=== PATIENT | male | born 1980 | race Caucasian/White ===

== ENCOUNTER 2020-03-06 09:06 | Outpatient (CLI) | payer BC, SELFPAY ==
[2020-03-06 09:38] LABS: Basophils Absolute Auto 0.1 K/mm3 (0.0-0.1); Basophils Percent Auto 0.9 % (0.2-1.2); Eosinophils Absolute Auto 0.2 K/mm3 (0-0.3); Eosinophils Percent Auto 2.1 % (0-4.4); Hematocrit 42.6 % (42.0-52.0); Hemoglobin 14.4 g/dL (14.0-18.0); Immature Granulocyte Absolute 0.03 K/mm3 (0.00-0.031); Immature Granulocyte Percent A 0.4 % (0-0.5); Lymphocytes Absolute Auto 2.91 K/mm3 (0.9-3.2); Lymphocytes Percent Auto 37.6 % (18.3-44.2); Mean Corpuscular HGB Conc 33.8 g/dl (32-36); Mean Corpuscular Volume 91.6 fl (80-100); Mean Platelet Volume 8.7 fl (7.4-10.4); Monocytes Absolute Auto 0.6 K/mm3 (0.1-0.6); Monocytes Percent Auto 7.1 % (2.6-8.5); Neutrophils Percent Auto 51.9 % (45.5-73.1); Platelet Count Result 320 k/mm3 (150-375); Red Blood Count 4.65 M/mm3 (4.6-6.20); Red Cell Distribution Width 12.4 % (11.5-14.5); White Blood Count 7.7 K/mm3 (4.5-10.0)
[2020-03-06 09:51] LABS: Alanine Aminotransferase 71 U/L (4-50); Albumin Level 4.1 g/dL (3.5-5.1); Alkaline Phosphatase 146 U/L (38-126); Aspartate Amino Transferase 42 U/L (17-59); Bilirubin,Total 0.4 mg/dL (0.2-1.3); Blood Urea Nitrogen 12 mg/dL (9-20); Carbon Dioxide 26 mmol/L (22-30); Chloride 101 mmol/L (98-107); Cholesterol 220 mg/dL (0-200); Estimated Glomerular Filt Rate > 60; Glucose 142 mg/dL (75-110); HDL Direct 61 mg/dL; Sodium 135 mmol/L (137-145); Triglycerides 102 mg/dL (<150)
[2020-03-06 10:03] LABS: LDL Cholesterol Direct 141 mg/dL
[2020-03-06 10:56] LABS: Hemoglobin A1C 8.4 % (<5.7)
[2020-03-06 15:21] LABS: Microalbumin Urine Random 101.5 mg/L (0-16.7)
[2020-03-06 15:24] LABS: Creatinine Urine 96.9 mg/dL; MALB Creatinine Ratio 104.7 mg/g (0-30)
[2020-03-11 15:59] LABS: Testosterone Total 270 ng/dL (250-1100)
== END 2020-03-06 09:07 | disposition home or self-care (01) ==
PROVIDERS: PCP Family Medicine; Visit Provider Nurse Practitioner
DX: R53.83 Other fatigue (principal); E11.9 Type 2 diabetes mellitus without complications; E03.9 Hypothyroidism, unspecified; E29.1 Testicular hypofunction; Z13.220 Encounter for screening for lipoid disorders; E55.9 Vitamin D deficiency, unspecified
CPT/HCPCS: 36415; 80053; 80061; 82043; 82306; 83036; 84402; 84403; 84443; 85025

== ENCOUNTER 2020-12-30 18:06 | Emergency (ER) | payer BC, SELFPAY ==
[2020-12-30 18:14] VITALS: BP 151/82; PULSE 93; RESP 16; TEMP 36.7; O2SAT 100
--- NOTE | 2020-12-30 19:07 | ED.GENADULT ---
HPI - General Adult General Chief complaint: Psychiatric Symptoms <Mirlande Lugo MD - Last Filed: 12/31/20 12:19> Stated complaint: mental health issues <Mirlande Lugo MD - Last Filed: 12/31/20 12:19> Time Seen by Provider: 12/30/20 18:43 <Mirlande Lugo MD - Last Filed: 12/31/20 12:19> Source: patient <Mirlande Lugo MD - Last Filed: 12/31/20 12:19> History of Present Illness HPI narrative: Patient is 40 y/o male complaining of a severe panic attack. He states that he was crying on floor earlier today about 1-2 hours ago. He states that he was incoherent. He states he is more stressed because his daughter had a recent suicide attempt. He denies any SI, HI or hallucinations. <Mirlande Lugo MD - Last Filed: 12/31/20 12:19> Related Data Allergies/adverse reactions: Allergies Allergy/AdvReac Type Severity Reaction Status Date / Time amoxicillin Allergy Unknown unknown Verified 12/30/20 18:21 meperidine Allergy Unknown unknown Verified 12/30/20 18:21 povidone Allergy Unknown unknown Verified 12/30/20 18:21 povidone-iodine Allergy Unknown Rash Verified 12/30/20 18:21 soap Allergy Unknown Unknown Verified 12/30/20 18:21 <Mirlande Lugo MD - Last Filed: 12/31/20 12:19> Review of Systems Constitutional: Constitutional: Denies chills, Denies fever(s), Denies headache(s) and Denies weakness <Mirlande Lugo MD - Last Filed: 12/31/20 12:19> Eyes: Eyes: Denies blurry vision <Mirlande Lugo MD - Last Filed: 12/31/20 12:19> ENT: Denies headache(s) and Denies neck pain <Mirlande Lugo MD - Last Filed: 12/31/20 12:19> Cardiovascular: Cardiovascular: Denies chest pain and Denies dyspnea <Mirlande Lugo MD - Last Filed: 12/31/20 12:19> Respiratory: Respiratory: Denies cough and Denies dyspnea <Mirlande Lugo MD - Last Filed: 12/31/20 12:19> Gastrointestinal: Gastrointestinal: Denies abdominal pain, Denies diarrhea, Denies nausea and Denies vomiting <Mirlande Lugo MD - Last Filed: 12/31/20 12:19> Genitourinary: Genitourinary: Denies hematuria and Denies dysuria <Mirlande Lugo MD - Last Filed: 12/31/20 12:19> Musculoskeletal: Musculoskeletal: Denies back pain and Denies neck pain <Mirlande Lugo MD - Last Filed: 12/31/20 12:19> Neurologic: Denies headache(s) and Denies weakness <Mirlande Lugo MD - Last Filed: 12/31/20 12:19> Psychiatric: Psychiatric: Reports as per HPI and Reports panic attacks <Mirlande Lugo MD - Last Filed: 12/31/20 12:19> PMF Past Medical History Medical History: Medical History Adult idiopathic generalized osteoporosis Diabetes History of leukemia Hypogonadism in male Osteoarthritis Psoriasis Thyroid goiter (~2010) Vitamin D deficiency <Mirlande Lugo MD - Last Filed: 12/31/20 12:19> Surgical History Surgical History: Surgical History History of bone marrow transplant History of cataract extraction <Mirlande Lugo MD - Last Filed: 12/31/20 12:19> Family History Family History: Family History Father Hypertension Family history of liver disease Family history of chronic obstructive pulmonary disease Family history of heart disease in male family member before age 55 Patient's father is Sibling Family history of alcoholism Family history of gastrointestinal disorder Mother Family history of type 2 diabetes mellitus Grandparent Family history of tuberculosis Hypertension Family history of arthritis <Mirlande Lugo MD - Last Filed: 12/31/20 12:19> Social History Social History: Social History Smoking status: Never smoker Alcohol intake: current <Mirlande Lugo MD - Last Filed: 12/31/20 12:19> Exam Const: General: no acute distress and well developed <Mirlande Lugo MD - [place]
--- NOTE | 2020-12-30 19:10 | PC.NURSE ---
assumed care of pt at this time. Report from Maco GROSS.
[2020-12-30 19:19] VITALS: BP 171/90; PULSE 88; RESP 18; O2SAT 97
[2020-12-30 19:38] LABS: Add Urine Microscopic? YES; Appearance Urine Clear (Clear); Bilirubin Urine Negative (Negative); Blood Urine Negative (Negative); Color Urine Straw (Yellow); Glucose Urine UA 3+ mg/dL (Negative); Ketones Urine Negative (Negative); Leukocyte Esterase Ur Negative LEU/UL (Negative); Mucus Urine Rare /lpf; Nitrate Urine Negative (Negative); Protein Urine 1+ mg/dL (Negative); RBC Urine 0-2 /hpf (0-2); Specific Grav Ur 1.015 (1.001-1.035); Urobilinogen Urine Negative mg/dL (<2.0); WBC Urine 0-3 /hpf
[2020-12-30 19:48] LABS: Basophils Percent Auto 0.5 % (0.2-1.2); Eosinophils Absolute Auto 0.1 K/mm3 (0-0.3); Eosinophils Percent Auto 1.4 % (0-4.4); Hematocrit 43.7 % (42.0-52.0); Hemoglobin 14.4 g/dL (14.0-18.0); Immature Granulocyte Absolute 0.02 K/mm3 (0.00-0.031); Immature Granulocyte Percent A 0.3 % (0-0.5); Lymphocytes Absolute Auto 2.51 K/mm3 (0.9-3.2); Lymphocytes Percent Auto 32.5 % (18.3-44.2); Mean Corpuscular Hemoglobin 30.4 pg (26-34); Mean Corpuscular Volume 92.4 fl (80-100); Mean Platelet Volume 9.1 fl (7.4-10.4); Monocytes Absolute Auto 0.6 K/mm3 (0.1-0.6); Monocytes Percent Auto 7.5 % (2.6-8.5); Neutrophils Absolute Auto 4.5 K/mm3 (1.3-6.7); Neutrophils Percent Auto 57.8 % (45.5-73.1); Platelet Count Result 265 k/mm3 (150-375); Red Blood Count 4.73 M/mm3 (4.6-6.20); Red Cell Distribution Width 12.8 % (11.5-14.5); White Blood Count 7.7 K/mm3 (4.5-10.0)
[2020-12-30 19:48] LABS: Barbiturate Screen Urine Negative (Negative); Benzodiazepines Screen Urine Negative (Negative)
[2020-12-30 19:49] LABS: Amphetamine Screen Urine Negative (Negative); Cannabinoid Screen Urine Negative (Negative); Cocaine Screen Urine Negative (Negative); Methadone Screen Urine Negative (Negative); Phencyclidine Screen Urine Negative (Negative)
[2020-12-30 19:56] LABS: Ethanol < 10 mg/dL (<10)
[2020-12-30 19:58] LABS: Alanine Aminotransferase 85 U/L (4-50); Albumin Level 4.1 g/dL (3.5-5.1); Alkaline Phosphatase 167 U/L (38-126); Anion Gap 4 mmol/L (8-16); Aspartate Amino Transferase 72 U/L (17-59); Bilirubin,Total 0.5 mg/dL (0.2-1.3); Blood Urea Nitrogen 13 mg/dL (9-20); Calcium 9.4 mg/dL (8.4-10.2); Carbon Dioxide 34 mmol/L (22-30); Chloride 100 mmol/L (98-107); Estimated CRCL calculation 218 ml/min; Estimated Glomerular Filt Rate > 60; Glucose 139 mg/dL (75-110); Potassium 4.2 mmol/L (3.4-5.0); Sodium 138 mmol/L (137-145)
[2020-12-30 20:09] LABS: Opiate Screen Urine Negative (Negative)
[2020-12-30 21:00] VITALS: BP 166/74; PULSE 87; RESP 20; O2SAT 99
[2020-12-30 22:52] VITALS: BP 162/88; PULSE 90; RESP 20; TEMP 36.6; O2SAT 97
== END 2020-12-30 22:52 | disposition home or self-care (01) ==
PROVIDERS: Family Medicine; Emergency Provider Emergency Medicine; PCP Family Medicine
DX: F32.9 Major depressive disorder, single episode, unspecified (principal); M81.8 Other osteoporosis without current pathological fracture; E11.9 Type 2 diabetes mellitus without complications; Z85.6 Personal history of leukemia; M19.90 Unspecified osteoarthritis, unspecified site; E55.9 Vitamin D deficiency, unspecified; Z98.49 Cataract extraction status, unspecified eye; Z94.81 Bone marrow transplant status
CPT/HCPCS: 36415; 80053; 80307; 81001; 84443; 85025; 99284

== ENCOUNTER 2021-02-01 08:35 | Outpatient (CLI) | payer BC, SELFPAY ==
[2021-02-01 08:55] LABS: Basophils Percent Auto 0.5 % (0.2-1.2); Eosinophils Absolute Auto 0.1 K/mm3 (0-0.3); Eosinophils Percent Auto 1.4 % (0-4.4); Hematocrit 42.9 % (42.0-52.0); Immature Granulocyte Absolute 0.03 K/mm3 (0.00-0.031); Immature Granulocyte Percent A 0.4 % (0-0.5); Lymphocytes Absolute Auto 1.57 K/mm3 (0.9-3.2); Lymphocytes Percent Auto 21.3 % (18.3-44.2); Mean Corpuscular HGB Conc 32.6 g/dl (32-36); Mean Corpuscular Hemoglobin 30.2 pg (26-34); Mean Corpuscular Volume 92.7 fl (80-100); Mean Platelet Volume 8.8 fl (7.4-10.4); Monocytes Absolute Auto 0.4 K/mm3 (0.1-0.6); Monocytes Percent Auto 5.7 % (2.6-8.5); Neutrophils Absolute Auto 5.2 K/mm3 (1.3-6.7); Neutrophils Percent Auto 70.7 % (45.5-73.1); Platelet Count Result 290 k/mm3 (150-375); Red Blood Count 4.63 M/mm3 (4.6-6.20); Red Cell Distribution Width 12.9 % (11.5-14.5); White Blood Count 7.4 K/mm3 (4.5-10.0)
[2021-02-01 09:08] LABS: Alanine Aminotransferase 74 U/L (4-50); Alkaline Phosphatase 122 U/L (38-126); Anion Gap 8 mmol/L (8-16); Aspartate Amino Transferase 52 U/L (17-59); Bilirubin,Total 0.6 mg/dL (0.2-1.3); Blood Urea Nitrogen 12 mg/dL (9-20); Calcium 9.2 mg/dL (8.4-10.2); Carbon Dioxide 31 mmol/L (22-30); Chloride 99 mmol/L (98-107); Cholesterol 224 mg/dL (0-200); Estimated Glomerular Filt Rate > 60; Glucose 108 mg/dL (75-110); HDL Direct 66 mg/dL; Potassium 3.6 mmol/L (3.4-5.0); Sodium 138 mmol/L (137-145); Triglycerides 102 mg/dL (<150)
[2021-02-01 09:12] LABS: Hemoglobin A1C 8.1 % (<5.7)
[2021-02-01 09:18] LABS: LDL Cholesterol Direct 119 mg/dL
[2021-02-01 09:56] LABS: Creatinine Urine 116.5 mg/dL
[2021-02-01 10:47] LABS: MALB Creatinine Ratio 218.4 mg/g (0-30); Microalbumin Urine Random 254.4 mg/L (0-16.7)
[2021-02-01 13:32] LABS: Vitamin D 25 Hydroxy < 12.8 ng/mL
[2021-02-05 15:07] LABS: Testosterone Total 22 ng/dL (250-1100)
== END 2021-02-01 08:36 | disposition home or self-care (01) ==
PROVIDERS: PCP Family Medicine; Visit Provider Nurse Practitioner
DX: E11.9 Type 2 diabetes mellitus without complications (principal); E55.9 Vitamin D deficiency, unspecified; E29.1 Testicular hypofunction
CPT/HCPCS: 36415; 80053; 80061; 82043; 82306; 83036; 84403; 85025

== ENCOUNTER 2022-04-07 08:01 | Outpatient (CLI) | payer BC, SELFPAY ==
--- NOTE | ~2022-04-07 | US_ITS ---
EXAMINATION: US abdomen complete DATE: 04/07/2022 08:38 INDICATION: Other specified abnormal findings of blood chemistry TECHNIQUE: Multiple grayscale and Doppler ultrasound images of the abdomen were obtained. COMPARISON: None FINDINGS: There is mildly increased echogenicity of the pancreas which is nonspecific. The liver demo nstrates increased echogenicity, heterogenous echotexture, and decreased through transmission. No reji face nodularity. Normal hepatopetal flow in the main portal vein. The gallbladder is normal with no a bnormal wall thickening, pericholecystic fluid or stones. The normal common bile duct measures 4 mm. There was no sonographic Landeros sign. The visualized portions of the aorta and inferior vena cava are normal. The right kidney measures 10.6 x 4.8 x 5.9 cm. The left kidney measures 10.6 x 4.1 x 6.2 cm. The kidn eys demonstrate normal parenchymal echogenicity. There is no hydronephrosis. The spleen measures 9.3 cm. Hyperechoic foci in the spleen consistent with old granulomatous disease. IMPRESSION: 1. Diffuse hepatic steatosis. Reviewed, dictated and finalized at location A.
== END 2022-04-07 08:02 | disposition home or self-care (01) ==
LOC: ANHIMG 08:01
PROVIDERS: PCP Family Medicine; Visit Provider Nurse Practitioner
DX: R14.0 Abdominal distension (gaseous) (principal); D89.811 Chronic graft-versus-host disease; R79.89 Other specified abnormal findings of blood chemistry; K76.0 Fatty (change of) liver, not elsewhere classified
CPT/HCPCS: 76700

== ENCOUNTER 2022-04-24 00:46 | Day surgery (SDC) | payer BC, SELFPAY ==
[2022-04-14 13:42] VITALS: BMI 16.6
[2022-04-24 06:55] VITALS: BP 140/80; PULSE 86; RESP 18; TEMP 36.3; O2SAT 98
--- NOTE | 2022-04-24 06:57 | SUR.PREOP ---
Pt. states that he did prep as prescribed but still having formed stools. Requesting to reschedule procedure.
== END 2022-04-24 07:07 | disposition home or self-care (01) ==
PROVIDERS: PCP Family Medicine; Visit Provider Internal Medicine Gastroenterology
PROC: 0DJD8ZZ Inspection of Lower Intestinal Tract, Via Natural or Artificial Opening Endoscopic (ICD-10-PCS; CPT 45378; principal; 2022-04-24 08:00)
DX: R19.7 Diarrhea, unspecified (principal); Z53.09 Procedure and treatment not carried out because of other contraindication
CPT/HCPCS: 99199; 99211; G0463

== ENCOUNTER 2022-05-23 17:00 | Emergency (ER) | payer BC, SELFPAY ==
--- NOTE | ~2022-05-23 | XR_ITS ---
EXAM: XR knee LT min 4V DATE: 05/23/2022 17:59 HISTORY: fall . COMPARISON: None available. FINDINGS: Severely decreased mineralization. Nondisplaced comminuted fracture of the distal left fem ur extending to the medial aspect of the intercondylar notch and the anterolateral cortex. No lytic o r blastic lesion. Joint spaces are maintained. No erosion or periosteal change. Large volume joint fl uid. IMPRESSION: Comminuted, nondisplaced fracture of the distal left femur. Large left knee joint effusio n. Reviewed, dictated and finalized at location K. IMPRESSION: Comminuted, nondisplaced fracture of the distal left femur. Large l eft knee joint effusion.
[2022-05-23 17:09] VITALS: BP 135/70; PULSE 100; RESP 18; TEMP 36.3; O2SAT 97
--- NOTE | 2022-05-23 18:11 | ED.LOWEXIN ---
HPI - Extremity Injury (Lower) General Chief Complaint: Extremity Injury, Lower Stated Complaint: Fell over the dog, left knee pain Time Seen by Provider: 05/23/22 17:19 History of Present Illness HPI Narrative: 42-year-old man presents to the emergency room for evaluation of left knee pain. Patient states that he tripped over his dog and heard a pop in his left knee. Patient is unable to ambulate due to the pain and swelling. Related Data Allergies Allergy/AdvReac Type Severity Reaction Status Date / Time amoxicillin Allergy Unknown unknown Verified 04/14/22 13:46 meperidine Allergy Unknown unknown Verified 04/14/22 13:46 povidone Allergy Unknown unknown Verified 04/14/22 13:46 povidone-iodine Allergy Unknown Rash Verified 04/14/22 13:46 soap Allergy Unknown Unknown Verified 04/14/22 13:46 Review of Systems Review of Systems: CONSTITUTIONAL: Denies fever, chills, or sweats. EYES: Denies visual changes, redness, or discharge. ENT: Denies rhinorrhea, congestion, sore throat, or otalgia. CARDIOVASCULAR: Denies chest pain, palpitations, or edema. RESPIRATORY: Denies cough or dyspnea. GASTROINTESTINAL: Denies abdominal pain, nausea, vomiting, or diarrhea. GENITOURINARY: Denies dysuria or hematuria. SKIN: Denies rash or itching. MUSCULOSKELETAL: Reports left knee pain NEUROLOGIC: Denies headache, numbness, dizziness, or weakness. PSYCHIATRIC: Denies anxiety or depression. 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 History of cataract extraction Family History Family History Father Hypertension Family history of liver disease Family history of chronic obstructive pulmonary disease Family history of heart disease in male family member before age 55 Patient's father is Sibling Family history of alcoholism Family history of gastrointestinal disorder Mother Family history of type 2 diabetes mellitus Grandparent Family history of tuberculosis Hypertension Family history of arthritis Social History Social History Smoking status: Never smoker Substance use: current Substance use type: marijuana Last use: 04/14/2022 Exam Narrative: GENERAL: Well-appearing, well-nourished, no physical limitations, and in no acute distress. HEAD: Normocephalic, atraumatic. EYES: Conjunctivae normal, PERRLA and EOMI. CHEST: Clear to auscultation. No respiratory distress. No wheezes rales or rhonchi. No tenderness. HEART: Regular rate and rhythm. No murmur heard. Normal peripheral pulses. EXTREMITIES: Left knee: Swelling and tenderness to the superior and lateral sides of the knee. No patellar tracking. No obvious bony abnormality or dislocation. Unable to fully extend due to pain, unable to assess for joint laxity due to pain. Unable to assess for meniscal injury due to limited range of motion and pain. Neurovascular is intact distally SKIN: Warm, dry, no rash. No noted wounds NEURO: No focal deficits. Alert and oriented x3. MAEW. CN's II-XI intact bilaterally, normal gait PSYCH: Cooperative. Normal mood and affect. Course Vital Signs Vital signs: Vital Signs Temperature 36.3 C L 05/23/22 17:09 Pulse Rate 100 05/23/22 17:09 Respiratory Rate 18 05/23/22 17:09 Blood Pressure 135/70 05/23/22 17:09 Pulse Oximetry 97 05/23/22 17:09 Oxygen Delivery Room Air
[2022-05-23] MEDS: IBUPROFEN 400 MG TABLET PO (18:27)
== END 2022-05-23 18:56 | disposition home or self-care (01) ==
PROVIDERS: Emergency Provider Nurse Practitioner Family; PCP Family Medicine
DX: S72.435A Nondisplaced fracture of medial condyle of left femur, initial encounter for closed fracture (principal); E11.9 Type 2 diabetes mellitus without complications; E55.9 Vitamin D deficiency, unspecified; M81.8 Other osteoporosis without current pathological fracture; Z85.6 Personal history of leukemia; Z86.16 Personal history of COVID-19; Z94.81 Bone marrow transplant status; Z94.84 Stem cells transplant status; Z98.49 Cataract extraction status, unspecified eye; Z79.84 Long term (current) use of oral hypoglycemic drugs; W01.0XXA Fall on same level from slipping, tripping and stumbling without subsequent striking against object, initial encounter
CPT/HCPCS: 73564; 99284; A9270

== ENCOUNTER 2022-07-10 09:18 | Outpatient (CLI) | payer BC, SELFPAY ==
[2022-07-10 16:51] LABS: Kit Draw Collected
== END 2022-07-10 09:19 | disposition home or self-care (01) ==
LOC: ANHGOSHLAB 09:21
PROVIDERS: PCP Family Medicine; Visit Provider Nurse Practitioner
DX: E04.9 Nontoxic goiter, unspecified (principal); E11.9 Type 2 diabetes mellitus without complications; E78.5 Hyperlipidemia, unspecified
CPT/HCPCS: 36415

== ENCOUNTER 2022-08-21 02:13 | Emergency (ER) | payer BC, SELFPAY ==
--- NOTE | ~2022-08-21 | CT_ITS ---
Noncontrast CT scan of the cervical spine Technique: Multiple contiguous axial [address] images of the cervical spine were obtained and rec onstructed in 2D sagittal and coronal planes on the acquisition scanner. Dose reduction technique was used on this scan by utilizing automated exposure control, adjustment of the mA and/or kV according to patient size. Clinical History: Pain Findings: No fractures or dislocations. Unremarkable visualized bony structures. The intervertebral disc spaces are preserved. No prevertebral soft tissue swelling. Impression: No fracture or subluxation of the cervical spine. Reviewed, dictated and finalized at location M. LOGY PHYSICIAN Impression: No fracture or subluxation of the cervical spine.
--- NOTE | ~2022-08-21 | CT_ITS ---
Non-contrast Head CT History: Head injury Technique: Axial non-contrast imaging of the brain was performed. Dose reduction technique was used on this scan by utilizing automated exposure control and iterative reconstruction technique. The dose -length product (DLP) was 605.33 mGy-cm. Findings: There is no evidence of intracranial hemorrhage, mass lesion, or acute infarct. Brain par enchyma appears normal. The ventricles and subarachnoid spaces are normal in size. The calvarium ap pears normal. The visualized paranasal sinuses and mastoid air cells are clear. Impression: No significant abnormality seen. Reviewed, dictated and finalized at [facility]. GER VALUATION Impression: No significant abnormality seen.
[2022-08-21 02:18] VITALS: BP 126/76; PULSE 95; RESP 18; TEMP 36.2; O2SAT 100
[2022-08-21 02:29] VITALS: RESP 16
--- NOTE | 2022-08-21 03:09 | ED.FALL ---
HPI - Fall General Chief Complaint: Fall Stated Complaint: fall Time Seen by Provider: 08/21/22 02:26 Source: patient and RN notes reviewed Mode of arrival: wheelchair Limitations: no limitations History of Present Illness HPI Narrative: This is a 42 year old male with history of osteoporosis who presents for evaluation of head injury and neck pain. Patient states he tripped walking to bathroom just prior to arrival, and this caused him to lose his balance. He fell backwards and he hit his head on dresser. He denies LOC. He reports headache and neck pain since his fall. He is concerned that he may have fracture due to his osteoporosis. He reports dizziness. He denies nausea, vomiting or other injury. He does not take any anticoagulants. Related Data Allergies Allergy/AdvReac Type Severity Reaction Status Date / Time amoxicillin Allergy Unknown Diarrhea Verified 08/21/22 02:28 meperidine Allergy Unknown Headache Verified 08/21/22 02:28 povidone Allergy Unknown skin rash Verified 08/21/22 02:28 povidone-iodine Allergy Unknown Rash Verified 08/21/22 02:28 soap Allergy Unknown Unknown Verified 08/21/22 02:28 Review of Systems Constitutional: Constitutional: Denies weakness Cardiovascular: Cardiovascular: Denies syncope, Denies rapid heart rate, Denies irregular heart rhythm, Denies leg edema and Denies dyspnea Respiratory: Respiratory: Denies chest congestion, Denies hemoptysis, Denies excessive phlegm production and Denies dyspnea Gastrointestinal: Gastrointestinal: Denies abdominal pain, Denies hematochezia, Denies diarrhea and Denies vomiting Genitourinary: Genitourinary: Denies hematuria, Denies dysuria, Denies penile discharge and Denies testicular pain Musculoskeletal: Musculoskeletal: Denies joint swelling, Denies loss of height and Denies muscle weakness Neurologic: Reports dizziness, Denies syncope, Reports headache(s), Denies focal weakness and Denies weakness [facility] Past Medical History Medical History Achilles tendinitis of right lower extremity Adult idiopathic generalized osteoporosis Anxiety Arthritis Chronic jteax-nypfzi-cmrw disease COVID (~08/2021) Diabetes Elevated blood sugar Femur fracture, right Fracture of distal end of left femur Graft vs host disease Hepatic steatosis History of leukemia Hypogonadism in male IBS (irritable bowel syndrome) Jaw pain Low testosterone Nausea & vomiting Osteoarthritis Osteoporosis [place] chromosome positive acute lymphoblastic leukemia Psoriasis Psoriasis SOB (shortness of breath) on exertion Thyroid goiter (~2010) Type 2 diabetes mellitus without complication Underweight (12/05/15) Vitamin D deficiency Surgical History Surgical History H/O eye surgery cataracts 1998/1999 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 History of cataract extraction History of esophageal surgery 1996 History of gastric surgery 1999 History of plastic surgery 1987 Hx of heart surgery Anderson cath insertion 1985 Family History Family History Father Hypertension Family history of liver disease Family history of chronic obstructive pulmonary disease Family history of heart disease in male family member before age 55 Patient's father is Sibling Family history of alcoholism Family history of gastrointestinal disorder Mother Family history of type 2 diabetes mellitus Grandparent Family history of tuberculosis Hypertension Family history of arthritis Other Arthritis Depression Diabetes mellitus HLD (hyperlipidemia) Heart disease Lung disease Malignant neoplasm of prostate Social History Social History Smoking status: Never smoker Alcohol intake: current Substance use:
[2022-08-21] MEDS: ONDANSETRON HCL ODT 4 MG TABLET PO (03:21)
[2022-08-21] MEDS: HYDROcodone/acetaminophen (*CRX) 5-325 MG TABLET 1 TAB PO (03:22)
[2022-08-21 05:25] VITALS: BP 152/84; PULSE 87; RESP 16; O2SAT 97
== END 2022-08-21 05:29 | disposition left against medical advice (07) ==
LOC: ANHED 02:45
PROVIDERS: Emergency Provider General Practice; PCP Family Medicine
DX: S09.90XA Unspecified injury of head, initial encounter (principal); S19.9XXA Unspecified injury of neck, initial encounter; E11.9 Type 2 diabetes mellitus without complications; E55.9 Vitamin D deficiency, unspecified; K58.9 Irritable bowel syndrome, unspecified; D89.811 Chronic graft-versus-host disease; M81.8 Other osteoporosis without current pathological fracture; M19.90 Unspecified osteoarthritis, unspecified site; Z94.81 Bone marrow transplant status; Z85.6 Personal history of leukemia; Z86.16 Personal history of COVID-19; Z98.49 Cataract extraction status, unspecified eye; Z79.84 Long term (current) use of oral hypoglycemic drugs; W01.190A Fall on same level from slipping, tripping and stumbling with subsequent striking against furniture, initial encounter
CPT/HCPCS: 70450; 72125; 99284; A9270

== ENCOUNTER → 2022-09-18 10:24 | Outpatient (CLI) | payer BC, SELFPAY ==
--- NOTE | ~2022-09-18 | XR_ITS ---
EXAMINATION: XR shoulder RT min 2V, XR humerus RT DATE: 09/18/2022 10:57 INDICATION: Right shoulder and arm pain post fall TECHNIQUE: 1. AP internally and externally rotated, AP oblique externally rotated and transscapular Y views of t he right shoulder were obtained. 2. Internal and axillary rotated views of the right humerus including a cone-down lateral view of the right elbow were obtained. COMPARISON: None FINDINGS: Normal alignment. Diffuse osteopenia. No fracture.Mild polyarticular osteoarthritis at the right wing ohumeral, acromioclavicular and elbow joints. No right elbow joint effusion. Small heterotopic ossicl es in the posterolateral right chest wall. Soft tissues are otherwise unremarkable. Visualized portio ns of the lungs are clear. Mild to moderate thoracic spondylosis. Chronic L1 burst fracture, present on CT dated 09/26/2017 with one third anterior vertebral body height loss. IMPRESSION: Mild polyarticular osteoarthritis at the right shoulder and elbow. No acute osseous LT . Reviewed, dictated and finalized at location B. ICAL IMPLEMENTATION SPECIALIST IMPRESSION: Mild polyarticular osteoarthritis at the right shoulder and elbow. No acute oss eous LT .
== END ==
PROVIDERS: PCP Family Medicine; Visit Provider Nurse Practitioner
DX: M19.011 Primary osteoarthritis, right shoulder (principal)
CPT/HCPCS: 73030; 73060

== ENCOUNTER 2024-06-24 08:21 | Outpatient (CLI) | payer BC, SELFPAY ==
[2024-06-24 09:30] LABS: Basophils Absolute Auto 0.1 K/mm3 (0.0-0.1); Basophils Percent Auto 0.8 % (0.2-1.2); Eosinophils Absolute Auto 0.1 K/mm3 (0-0.3); Eosinophils Percent Auto 1.8 % (0-4.4); Hematocrit 42.1 % (42.0-52.0); Hemoglobin 13.8 g/dL (14.0-18.0); Immature Granulocyte Absolute 0.01 K/mm3 (0.00-0.031); Immature Granulocyte Percent A 0.1 % (0-0.5); Lymphocytes Absolute Auto 2.45 K/mm3 (0.9-3.2); Lymphocytes Percent Auto 33.2 % (18.3-44.2); Mean Corpuscular HGB Conc 32.8 g/dl (32-36); Mean Corpuscular Hemoglobin 30.9 pg (26-34); Mean Corpuscular Volume 94.2 fl (80-100); Mean Platelet Volume 9.2 fl (7.4-10.4); Monocytes Absolute Auto 0.5 K/mm3 (0.1-0.6); Monocytes Percent Auto 6.2 % (2.6-8.5); Neutrophils Absolute Auto 4.3 K/mm3 (1.3-6.7); Neutrophils Percent Auto 57.9 % (45.5-73.1); Platelet Count Result 324 k/mm3 (150-375); Red Blood Count 4.47 M/mm3 (4.6-6.20); Red Cell Distribution Width 13.1 % (11.5-14.5); White Blood Count 7.4 K/mm3 (4.5-10.0)
[2024-06-24 09:40] LABS: Cholesterol 216 mg/dL (0-200); HDL Direct 72 mg/dL; Triglycerides 72 mg/dL (<150)
[2024-06-24 09:45] LABS: Alanine Aminotransferase 53 U/L (6-50); Albumin Level 4.2 g/dL (3.5-5.1); Alkaline Phosphatase 92 U/L (38-126); Anion Gap 8 mmol/L (4-12); Aspartate Amino Transferase 39 U/L (17-59); Bilirubin,Total 0.5 mg/dL (0.2-1.3); Blood Urea Nitrogen 12 mg/dL (9-20); Calcium 9.2 mg/dL (8.4-10.2); Carbon Dioxide 30 mmol/L (22-30); Chloride 101 mmol/L (98-107); Estimated Glomerular Filt Rate > 60; Glucose 96 mg/dL (65-110); Potassium 3.6 mmol/L (3.4-5.0); Sodium 139 mmol/L (137-145)
[2024-06-24 09:51] LABS: LDL Cholesterol Direct 113 mg/dL
[2024-06-24 09:53] LABS: Iron 137 ug/dL (49-181)
[2024-06-24 10:05] LABS: Percent Iron Saturation 40 % (20-50)
[2024-06-24 10:11] LABS: Prostate Specific Antigen 0.1 ng/mL (< OR = 4.0)
[2024-06-24 10:25] LABS: Vitamin D 25 Hydroxy < 12.8 ng/mL
[2024-06-24 10:26] LABS: Thyroid Stimulating Hormone Reflex 0.903 uIU/mL (0.465-4.68)
[2024-06-24 10:30] LABS: Hepatitis B Surface Antigen Negative (Negative)
[2024-06-24 10:36] LABS: HAV RESULT Negative (Negative); Hepatitis B Core IgM Result Negative (Negative)
[2024-06-24 10:45] LABS: Hemoglobin A1C 7.2 % (<5.7)
[2024-06-24 10:47] LABS: Hepatitis C Virus Antibody Negative (Negative)
[2024-06-25 07:54] LABS: Alpha-1-Antitrypsin, QN 153 mg/dL (83-199); Ceruloplasmin 25 mg/dL (14-30)
[2024-06-28 17:18] LABS: Immunoglobulin A 456 mg/dL (47-310); TTG IGA AB <1.0 U/mL
[2024-06-28 22:29] LABS: LKM 1 Antibody <=20.0 U (<=20.0)
[2024-06-29 04:53] LABS: Actin Antibody (IgG) <20 U (<20)
== END 2024-06-24 08:22 | disposition home or self-care (01) ==
LOC: ANHLAB 08:22
PROVIDERS: PCP Nurse Practitioner Family; Referring Provider Nurse Practitioner; Visit Provider Family Medicine
DX: K74.60 Unspecified cirrhosis of liver (principal); K76.0 Fatty (change of) liver, not elsewhere classified; E55.9 Vitamin D deficiency, unspecified; E04.9 Nontoxic goiter, unspecified; K58.9 Irritable bowel syndrome, unspecified; R79.89 Other specified abnormal findings of blood chemistry; R74.8 Abnormal levels of other serum enzymes; Z12.5 Encounter for screening for malignant neoplasm of prostate; E11.9 Type 2 diabetes mellitus without complications
CPT/HCPCS: 36415; 80053; 80061; 80074; 82103; 82306; 82390; 82728; 82784; 83036; 83520; 83540; 83550; 84153; 84402; 84403; 84443; 85025; 85610; 86038; 86039; 86364; 86376; G0103

== ENCOUNTER 2025-03-23 09:21 | Outpatient (CLI) | payer BC, SELFPAY ==
--- OUTSIDE RECORDS SUMMARY | 2025-03-23 09:25 | XMS_ITS | Clinical Summary ---
Author Organization [facility] Address [address] [place]: Epic Prelude ADT [place] [id number] Care Team Providers Care Tufter Hand Name Role Phone Austin Patel MD Primary Care Provider Allergies Active Allergy Reactions Criticality Noted Date Comments Amoxicillin Nausea and Vomiting Low 04/22/2016 Meperidine Headache Low 04/22/2016 Medications traMADoL (ULTRAM) 50 mg tablet Take 1 Tablet (50 mg) by mouth every 8 hours as needed for Pain. 30 Tablet 0 7 Active testosterone (ANDROGEL) 20.25 mg/1.25 gram (1.62 %) Gel in Metered-dose Pump Apply 40.5 mg to affected area daily Apply to the shoulders and upper arms in the morning. 75 Gram 0 6 Active sirolimus (RAPAMUNE) 1 mg/mL solution Take 2 mg by mouth daily. 6 Active metFORMIN (GLUCOPHAGE) 500 mg tablet Take 500 mg by mouth 2 times daily with meals. 6 Active cholecalciferol 1,250 mcg (50,000 unit) Capsule Take 50,000 Units by mouth every 7 days. 6 Active Active Problems Problem Noted Date Diagnosed Date Hypogonadism male 05/26/2016 Psoriasis 04/22/2016 Osteoporosis 04/22/2016 ALL (acute lymphoid leukemia) in remission 04/22 Chronic surrv-klqlee-zxbw disease 04/22/2016 Type 2 diabetes mellitus without complication Hypotestosteronism 04/22/2016 Family History Medical History Relation Name Comments Heart Disease Father Hypertension Father Breast Cancer Mother Diabetes Mother Relation Name Status Comments Father Mother Social History Tobacco Use Types Packs/Day Years Used Date Smoking Tobacco: Never Alcohol Use Standard Drinks/Week Comments Not Asked 0 (1 standard drink = 0.6 oz pur e alcohol) Sex and Gender Information Value Date Recorded Sex Assigned at Not on file Legal Sex Male 4:00 AM ASSESSMENT ANALYST Gender Identity Not on file Sexual Orientation Not on file Last Filed Vital Signs Vital Sign Reading Time Taken Comments Blood Pressure 120/68 09/04/2016 8:09 AM ASSESSMENT ANALYST Pulse 87 09/04/2016 8:09 AM ASSESSMENT ANALYST Temperature 36.5 C (97.7 F) 09/04/2016 8:09 AM ASSESSMENT ANALYST Respiratory Rate - - Oxygen Saturation - - Inhaled Oxygen Concentration - - Weight 37.2 kg (82 lb) 09/04/2016 8:09 AM ASSESSMENT ANALYST Height 154.9 cm (5' 1) 09/04/2016 8:09 AM ASSESSMENT ANALYST Body Mass Index 15.49 09/04/2016 8:09 AM ASSESSMENT ANALYST Plan of Treatment Health Maintenance Due Date Last Done Comments HPV VACCINES (1 - Male 3-dose series) 01/07/1995 DIABETES ANNUAL FOOT EXAM 01/07/1998 DIABETES ANNUAL RETINAL EXAM 01/07/1998 DIABETES HBA1C Q 6 MONTHS 01/07/1998 DIABETES MICROALBUMIN ANNUAL SCREEN 01/07/1998 LDL CHOLESTEROL ANNUAL 01/07/1998 DTAP/TDAP/TD VACCINES (1 - Tdap) 01/07/1999 HEPATITIS B VACCINES (1 of 3 - 19+ 3-dose series) 12/21 Preventative Visit- Commercial 08/23/2024 COLORECTAL SCREENING 01/07/2025 Colorectal Cancer Screening 01/07/2025 FIT-DNA Q 3 years 01/07/2025 FIT/FOBT Q 1 year 01/07/2025 Flex Sig/CT Colonography Q 5 years 01/07/2025 INFLUENZA VACCINE (#1) 2025 Insurance [facility] Member Subscriber Plan / Payer (Ef fective 2020-Present) Name:Jackson Bartlett Relation to Subscriber:Self Name:Jackson Bartlett Payer ID:Not on file Type:[employer] Address: [facility] [id number] [place] [id number] Care Teams Tufter Hand Relationship Specialty Start Date End Date Austin Patel MD [address] [place] [id number] PCP - General Family Practice 04/22/16
--- OUTSIDE RECORDS SUMMARY | 2025-03-23 09:25 | XMS_ITS | Referral Summary ---
Author Organization [facility] [place] [address] Address [address] [place] [id number] Care Team Providers Care Sign Maker Name Role Phone No, Physician Primary Care Provider [phone] Allergies Active Allergy Reactions Criticality Noted Date Comments Amoxicillin Unknown 07/17/2015 Meperidine (Pf) Unknown 07/17/2015 Povidone-Iodine Unknown 07/17/2015 Medications Jardiance 10 mg tablet Take 1 tablet (10 mg total) by mouth daily 03/26/2024 Active metFORMIN (GLUCOPHAGE) 500 mg tablet Take 1 tablet (500 mg total) by mouth 07/17/2015 Active Active Problems No known active problems Social History Tobacco Use Types Packs/Day Years Used Date Smoking Tobacco: Never Sex and Gender Information Value Date Recorded Sex Assigned at Not on file Legal Sex Male 6:33 AM MINK RANCHER Gender Identity Not on file Sexual Orientation Not on file Last Filed Vital Signs Vital Sign Reading Time Taken Comments Blood Pressure 123/85 04/22/2024 3:29 PM CDT Pulse 100 04/22/2024 3:29 PM CDT Temperature 36.6 C (97.8 F) 04/22/2024 3:29 PM CDT Respiratory Rate 22 04/22/2024 3:29 PM CDT Oxygen Saturation 95% 04/22/2024 3:29 PM CDT Inhaled Oxygen Concentration - - Weight 43.1 kg (95 lb) 04/22/2024 3:29 PM CDT Height 152.4 cm (5') 04/22/2024 3:29 PM CDT Body Mass Index 18.55 04/22/2024 3:29 PM CDT Plan of Treatment Not on file Insurance [employer] Care Teams Sign Maker Relationship Specialty Start Date End Date No, Physician PCP - General 11/30/17
--- OUTSIDE RECORDS SUMMARY | 2025-03-23 09:25 | XMS_ITS | Clinical Summary ---
Author Organization [facility] [place] [address] Address [address] [place] [id number] Care Team Providers Care City Solicitor Name Role Phone No, Physician Primary Care Provider [phone] Allergies Active Allergy Reactions Criticality Noted Date Comments Amoxicillin Unknown 07/17/2015 Meperidine (Pf) Unknown 07/17/2015 Povidone-Iodine Unknown 07/17/2015 Medications Jardiance 10 mg tablet Take 1 tablet (10 mg total) by mouth daily 03/26/2024 Active metFORMIN (GLUCOPHAGE) 500 mg tablet Take 1 tablet (500 mg total) by mouth 07/17/2015 Active Active Problems No known active problems Family History Medical History Relation Name Comments Diabetes Mother Family history of diabetes mellitus - (Added by TW Conv) Macular degeneration Paternal Grandfather Family history of macular degeneration - (Added by TW Conv) Relation Name Status Comments Mother Paternal Grandfather Social History Tobacco Use Types Packs/Day Years Used Date Smoking Tobacco: Never Sex and Gender Information Value Date Recorded Sex Assigned at Not on file Legal Sex Male 6:33 AM PROCTOLOGIST Gender Identity Not on file Sexual Orientation Not on file Obstetrics History Last Filed Vital Signs Vital Sign Reading [...] 04/22/2024 3:29 PM CDT Plan of Treatment Health Maintenance Due Date Last Done Comments Colon Cancer Screening-Colonoscopy 1980 Depression Screening 1980 Hepatitis C Screening 1980 DTaP/Tdap/Td Vaccine (1 - Tdap) 01/07/1991 Varicella Vaccines (1 of 2 - 13+ 2-dose series) 01/07/1993 Hepatitis B Screening 01/07/1998 Regular Well Visit/Exam 18-64 01/07/1998 Pneumococcal vaccine <65 (1 of 2 - PCV) 01/07/1999 Zoster Vaccine (1 of 2) 01/07/1999 HPV Vaccines (1 - Risk 3-dos e SCDM series) 01/07/2007 Covid-19 Vaccine ( season) 2024 04/07/2021, 10/11/2020, 09/20/2020 Influenza Vaccine (#1) 2025 Insurance [employer] Care Teams City Solicitor Relationship Specialty Start Date End Date No, Physician PCP - General 11/30/17
[2025-03-23 14:46] LABS: Hematocrit 50.1 % (42.0-52.0); Hemoglobin 16.4 g/dL (14.0-18.0); Immature Granulocyte Percent A 0.3 % (0-0.5); Lymphocytes Absolute Auto 2.44 K/mm3 (0.9-3.2); Mean Corpuscular HGB Conc 32.7 g/dl (32-36); Mean Corpuscular Hemoglobin 29.8 pg (26-34); Mean Corpuscular Volume 91.1 fl (80-100); Nucleated Red Blood Cells Absolute Auto 0.000 K/mm3 (0.0-0.012); Nucleated Red Blood Cells Perc 0.0 % (0.0-0.2); Platelet Count Result 285 k/mm3 (150-375); Red Blood Count 5.50 M/mm3 (4.6-6.20); White Blood Count 6.9 K/mm3 (4.5-10.0)
[2025-03-23 15:16] LABS: Hemoglobin A1C 8.7 % (<5.7)
[2025-03-23 15:21] LABS: Alanine Aminotransferase 77 U/L (6-50); Albumin Level 4.1 g/dL (3.5-5.1); Alkaline Phosphatase 139 U/L (38-126); Anion Gap 8 mmol/L (4-12); Aspartate Amino Transferase 46 U/L (17-59); Bilirubin,Total 0.4 mg/dL (0.2-1.3); Blood Urea Nitrogen 12 mg/dL (9-20); Calcium 9.6 mg/dL (8.4-10.2); Carbon Dioxide 29 mmol/L (22-30); Chloride 99 mmol/L (98-107); Cholesterol 233 mg/dL (0-200); Estimated Glomerular Filt Rate > 60; Glucose 147 mg/dL (65-110); HDL Direct 56 mg/dL; Potassium 4.3 mmol/L (3.4-5.0); Sodium 136 mmol/L (137-145); Total Protein 7.7 g/dL (6.3-8.2); Triglycerides 98 mg/dL (<150)
[2025-03-23 15:29] LABS: MALB Creatinine Ratio 819.2 mg/g (0-30)
[2025-03-23 15:51] LABS: Thyroid Stimulating Hormone Reflex 0.900 uIU/mL (0.465-4.68)
[2025-03-29 01:07] LABS: Free Testosterone (Direct) 11.7 pg/mL (6.8-21.5)
== END 2025-03-23 09:22 | disposition home or self-care (01) ==
LOC: ANHGOSHLAB 09:22
PROVIDERS: PCP Nurse Practitioner Family; Visit Provider Nurse Practitioner Family
DX: E55.9 Vitamin D deficiency, unspecified (principal); I10 Essential (primary) hypertension; E78.5 Hyperlipidemia, unspecified; E11.40 Type 2 diabetes mellitus with diabetic neuropathy, unspecified; E04.9 Nontoxic goiter, unspecified
CPT/HCPCS: 36415; 80053; 80061; 82043; 82306; 83036; 84402; 84403; 84443; 85025